=== PATIENT | female | born 1965 ===

== ENCOUNTER → 2021-02-17 | Outpatient (CLI) | payer SELFPAY | END | disposition home or self-care (01) | LOC: LAB SHORT 18:51 | DX: S91.301A Unspecified open wound, right foot, initial encounter (principal) | CPT/HCPCS: 87070; 87205 ==

== ENCOUNTER 2022-01-23 20:20 | Emergency (ER) | payer OTHER ==
[~2022-01-23] VITALS: Ht 170.2 cm; Wt 124.7 kg
== END 2022-01-24 01:00 | disposition left against medical advice (07) ==
LOC: ER 20:20
DX: L02.214 Cutaneous abscess of groin (principal); Z53.21 Procedure and treatment not carried out due to patient leaving prior to being seen by health care provider
CPT/HCPCS: 99281